=== PATIENT | male | born 1995 | race Hispanic/Latino ===

== ENCOUNTER 2017-12-22 16:59 | Emergency (ER) | payer SELFPAY ==
[2017-12-22] MEDS ORDERED: Adacel (T-DAP) 0.5 ML VIAL ONE (17:09)
[2017-12-22] MEDS ORDERED: Lidocaine 1% PF 5 ML VIAL ONE (17:10)
[2017-12-22] MEDS ORDERED: Bacitracin Zinc 1 Packet ONE (17:36)
== END 2017-12-22 17:40 | disposition home or self-care (01) ==
LOC: SCSER 16:59
DX: S61.011A Laceration without foreign body of right thumb without damage to nail, initial encounter (principal); W25.XXXA Contact with sharp glass, initial encounter; Y92.69 Other specified industrial and construction area as the place of occurrence of the external cause
CPT/HCPCS: 12001; 90471; 90715; J2001

== ENCOUNTER 2018-01-04 13:42 | Emergency (ER) | payer SELFPAY ==
[2018-01-04] MEDS ORDERED: Bacitracin Zinc 1 Packet ONE (13:54)
== END 2018-01-04 13:59 | disposition home or self-care (01) ==
LOC: SCSER 13:42
DX: S61.011D Laceration without foreign body of right thumb without damage to nail, subsequent encounter (principal)